=== PATIENT | male | born 1960 | race Caucasian/White ===

== ENCOUNTER 2024-01-30 10:34 | Day surgery (SDC) | payer OTHER ==
[2024-01-22 13:05] VITALS: BMI 25.8
[2024-01-30 12:51] VITALS: RESP 16; TEMP 97.6
[2024-01-30 12:53] VITALS: BP 117/84; PULSE 74
== END 2024-01-30 12:50 | disposition home or self-care (01) ==
LOC: FASU-ENDO 10:34
PROVIDERS: ATTEND Internal Medicine Gastroenterology
PROC: 0DB68ZX Excision of Stomach, Via Natural or Artificial Opening Endoscopic, Diagnostic (ICD-10-PCS; 2024-01-30)
PROC: 0DB48ZX Excision of Esophagogastric Junction, Via Natural or Artificial Opening Endoscopic, Diagnostic (ICD-10-PCS; 2024-01-30)
PROC: 0DB98ZX Excision of Duodenum, Via Natural or Artificial Opening Endoscopic, Diagnostic (ICD-10-PCS; principal; 2024-01-30 11:58)
DX: K29.50 Unspecified chronic gastritis without bleeding (principal); K20.90 Esophagitis, unspecified without bleeding; K44.9 Diaphragmatic hernia without obstruction or gangrene; R10.13 Epigastric pain
CPT/HCPCS: 88305-TC; 88342-TC

== ENCOUNTER 2024-04-30 09:15 | Day surgery (SDC) | payer OTHER ==
[2024-04-02 13:15] VITALS: BMI 25.8
[2024-04-30] MEDS ORDERED: PROPOFOL 60 ML ONE (10:28)
[2024-04-30] MEDS ORDERED: LIDOCAINE HCL/PF 2% SDV 5ML VIAL ONE (10:28)
[2024-04-30 12:35] VITALS: TEMP 97.5
[2024-04-30 13:59] VITALS: BP 116/77; PULSE 48; RESP 16
== END 2024-04-30 12:00 | disposition home or self-care (01) ==
LOC: FASU-ENDO 09:15
PROVIDERS: ATTEND Internal Medicine Gastroenterology
PROC: 0DBN8ZX Excision of Sigmoid Colon, Via Natural or Artificial Opening Endoscopic, Diagnostic (ICD-10-PCS; principal; 2024-04-30 10:24)
DX: Z12.11 Encounter for screening for malignant neoplasm of colon (principal); K63.5 Polyp of colon
CPT/HCPCS: 88305-TC